=== PATIENT | male | born 2000 | race Caucasian/White ===

== ENCOUNTER 2024-06-22 08:58 | Emergency (ER) | payer OTHER ==
[~2024-06-22] VITALS: Ht 177.8 cm; Wt 85.6 kg
--- OUTSIDE RECORDS SUMMARY | 2024-06-22 09:03 | XMS ---
PreManage Notification: JANE SANTORO Security Lookback Coordinator Events No recent Security Events currently on file CRITERIA MET - [facility] [place] - 2 Visits in 30 Days CARE PROVIDERS There are no care providers on record at this time. Toshia has no Care Guidelines for this patient. Sheyla VISIT COUNT (12 MO.) 1 EUGENE [facility] TOTAL 2 NOTE: Visits indicate total known visits. ED/UCC VISIT TRACKING (12 MO.) 06/22/2024 08:59 [facility] [place] TYPE: Emergency COMPLAINT: - SUTURE REMOVAL 06/13/2024 12:22 [facility] [place] TYPE: Emergency DIAGNOSES: - Laceration without foreign body of right little finger without damage to nail, initial encounter - FINGER LACERATION INPATIENT VISIT TRACKING (12 MO.) No inpatient visits to display in this time frame [email or web address]
[2024-06-22 09:54] VITALS: BP 131/84
== END 2024-06-22 09:54 | disposition home or self-care (01) ==
LOC: ED 08:58
DX: Z48.02 Encounter for removal of sutures (principal); R00.1 Bradycardia, unspecified
CPT/HCPCS: 99282